=== PATIENT | male | born 1950 | race Caucasian/White ===

== ENCOUNTER → 2016-07-31 | Outpatient (CLI) | payer OTHER ==
[~2016-07-31] VITALS: Ht 175.3 cm; Wt 61.2 kg
[~2016-07-31] MED LIST: FENTANYL PA25 MCG/HR TRANSDERM; LANTUS SUBQ; LIDODERM 5%1 PATC1 TRANSDERM; OMEPRAZOLE20 M2 PO; OXYCODONE HCL 55 MG PO
--- NOTE | ~2016-07-31 | HPC ---
[facility] [address] [place] [address] PAIN MANAGEMENT CONSULTATION Name: CONI LUIS Room #: REG [facility] MNatalie.#: [id number] Admission: 07/31/16 Attend Phys: Ata Anderson DO Discharge: Date of : 50 Report #: [id number] THIS REPORT FOR: //name// CC: Dr. Georgie Anderson DATE OF SERVICE: 07/31/2016 HISTORY OF PRESENT ILLNESS: The patient is a very pleasant 66-year-old gentleman, seen in consultation at the [facility] for assistance with management of pancreatic pain. The patient notes he was in his usual state of good health when physician noted he was a bit jaundiced in April (2015) , subsequent workup revealed pancreatic cancer. He has completed 3 months of chemotherapy. They attempted Whipple surgical procedure, but unfortunately after opening the abdomen they simply aborted the procedure due to spread of disease. States he actually did reasonably well from a pain standpoint until January and then pain started to become more problematic in the mid back radiating to the ribs. Pain seems to be worse throughout the day sitting, gets some relief with pain medications, heat and walking. He describes continuous, throbbing pain, rates anywhere from 7-9 on a 0-10 visual analog scale. Currently, utilizing Duragesic 37 mcg (one 25 mcg patch one 12 mcg patch), oxycodone 5 mg anywhere from 2-6 a day for pain, Lidoderm patches with some efficacy. He is loathe to take more opiates due to cognitive issues. He would like to remain as sharp and focussed as he can. REVIEW OF SYSTEMS: Complete review of systems attached to chart and gone over with the patient. He is , seen in the company of his sister who is supportive. He has a 77-mzwh-wswz smoking history, quit in 2014. He used to drink episodically, though he has had not any alcohol for the past year, had none insulin-dependent diabetes for some time, though following the cancer diagnosis and more aggressive infiltration of tumor in the pancreatitis, he has become insulin-dependent. Has a history of hypertension, on no medications; gastroesophageal reflux for which he takes omeprazole. 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 He is a retired local delivery truck driver. Pain impact score is 49/70. PHYSICAL EXAMINATION: GENERAL: Reveals a 5 feet 9 inches, 150 pounds gentleman. He has lost about 30 pounds in the last 6 months. VITAL SIGNS: Blood pressure is 115/76, pulse 77, respirations are 14, BMI is [address] [address] PAIN MANAGEMENT CONSULTATION Name: CONI LUIS [facility]#: [id number] Admission: 07/31/16 Attend Phys: Ata Anderson DO Discharge: Date of : 50 Report #: [id number] 19.4 kg/meter squared. He does appear somewhat cachectic. NEUROLOGIC: Cranial 2-12 are grossly intact. HEENT: Pupils equal, reactive to light and accommodation. Extraocular muscles are intact. There is no nystagmus or lateral gaze deviation. Thyroid is modestly enlarged. NECK: Cervical range of motion is full. Upper extremity strength is preserved. HEART: Regular rhythmical without murmur. LUNGS: Clear to auscultation. EXTREMITIES: Lower extremity strength is symmetric. Gait is tandem. Lower extremity deep tendon reflexes are symmetric. Straight leg raise is negative. BACK: Inspection of back is unremarkable. ABDOMEN: Shows some diffuse tenderness, though no masses appreciable, normal borborygmi, negative rebound or guarding. DIAGNOSTIC DATA: The patient does have a recent CT of the abdomen, from 06/06/2016. 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 No bowel obstruction is noted. ASSESSMENT: Pancreatic cancer, abdominal pain requiring complex medication management. RECOMMENDATION: Long discussion with the patient today about therapeutic options. I discussed at length celiac plexus block, anatomic challenge, side effects including diarrhea, increased abdominal pain and lower extremity weakness as well as incontinence. The patient understands risks and benefits. He would like to proceed. We will plan on moving forward with outpatient celiac plexus diagnostic block. The patient will require IV placement and hypertension prior due to anticipated hypotension. If this affords good relief 6-8 weeks, we will repeat the block Indefinitely. If it gives him short term relief, we will plan on moving forward with celiac plexus ablation. He will require at least 23 hour observation. The patient was discharged in good and stable condition. We will plan to move forward with diagnostic celiac plexus block at earliest possible date. Thanks for allowing me to participate in the patient's care. I will keep you abreast of his progress. <ELECTRONICALLY SIGNED> By: Ata Anderson DO 08/03/16 0749 [id number] [id number] Ata Anderson DO /nt
[2016-07-31 13:13] VITALS: BP 115/76
== END ==
LOC: PAIN 09:52
DX: R10.12 Left upper quadrant pain (principal); Z87.891 Personal history of nicotine dependence; I10 Essential (primary) hypertension; E10.9 Type 1 diabetes mellitus without complications

== ENCOUNTER → 2016-08-06 | Outpatient (CLI) | payer OTHER ==
[~2016-08-06] VITALS: Ht 172.7 cm; Wt 65.3 kg
--- NOTE | ~2016-08-06 | HPC ---
[facility] [place] [address] [place] [address] PAIN MANAGEMENT CONSULTATION Name: CONI LUIS [facility] [id number] Admission: 08/06/16 Attend Phys: Ata Anderson DO Discharge: Date of : 50 Report #: [id number] THIS REPORT FOR: //name// CC: GUCCI Anderson DATE OF SERVICE: 08/06/2016 The patient is a very pleasant 66-year-old gentleman with pancreatic carcinoma. He has elected to forgo chemotherapy, 3 rounds caused significant nausea and vomiting. He is under palliative management presently. Ongoing abdominal pain, not well treated with current opiate analgesics. He was seen in consultation 07/31/2016. We discussed a celiac plexus block. The patient presents to pain clinic today for diagnostic celiac plexus block. Risks and benefits were discussed including risk of pneumothorax, increased pain, weakness, diarrhea, lower extremity paralysis and mesenteric infarction. The patient understands risks and benefits and wished to proceed. 1. Intravenous access was established in the right forearm by myself with a 20-gauge Angiocath. An IV of 0.9% normal saline infusion was started with the intent of bolusing approximately 500 mL. 2. The patient was taken to the fluoroscopy suite, placed in prone position with appropriate abdominal bolstering. Prep and drape was accomplished. Skin wheal with Xylocaine was raised. A 22-gauge Chiba needle was placed from a left paramedian approach contacting the superior aspect of the L1 vertebral body. The stylet was removed and a saline filled glass syringe was connected. With continuous plunger pressure and biplanar fluoroscopy, the needle was advanced anteriorly. Loss of resistance was obtained with the needle about midpoint on an anterior, posterior view and approximately 5-7 mm anterior to the anterior most portion of the L1 vertebral body on a lateral view. Negative aspiration was accomplished. 1 mL of Omnipaque was injected, which showed spread within the celiac gutter. A 5 mL of 0.5% preservative-free bupivacaine plus 5 mL of 1.5% preservative-free Xylocaine with 1:200,000 epinephrine and 40 mg of triamcinolone was injected. The needle was removed, area was cleansed, Band-Aid was applied. The patient was log rolled onto transfer [place]. He was taken to the recovery room, monitored for an appropriate period of time. IV bolus was completed. IV was discontinued. The patient was discharged in good and stable condition. We will monitor effect of block. If he gets a prolonged relief, i.e., 6-8 weeks, we will consider repeating the injection. If he gets [address] [address] PAIN MANAGEMENT CONSULTATION Name: CONI LUIS Room #: REG CLI Jose Ramon#: [id number] Admission: 08/06/16 Attend Phys: Ata Anderson DO Discharge: Date of : 50 Report #: [id number] good yet transient relief, we will plan on moving forward with celiac plexus ablation. <ELECTRONICALLY SIGNED> By: Ata Anderson DO 08/07/16 0837 0814 1437 Ata Anderson DO /nt
[2016-08-06 07:36] VITALS: BP 125/79
== END | disposition home or self-care (01) ==
LOC: PAIN 07:08
DX: C25.9 Malignant neoplasm of pancreas, unspecified (principal); R10.9 Unspecified abdominal pain; R07.81 Pleurodynia; M54.9 Dorsalgia, unspecified

== ENCOUNTER → 2016-08-14 | Outpatient (CLI) | payer OTHER ==
[~2016-08-14] VITALS: Ht 175.3 cm; Wt 61.7 kg
--- NOTE | ~2016-08-14 | HPC ---
[facility] [place] [address] PAIN MANAGEMENT CONSULTATION Name: JANELLECONI Room #: REG [facility] Shilpa.#: [id number] Admission: 08/14/16 Attend Phys: Ata Anderson DO Discharge: Date of : 50 Report #: [id number] THIS REPORT FOR: //name// CC: GUCCI Anderson HISTORY OF PRESENT ILLNESS: The patient is a very pleasant 66-year-old gentleman initially seen in consultation for acute and chronic abdominal pain secondary to pancreatic cancer. The patient has failed conservative therapy. We did a celiac plexus diagnostic block last week. The patient had excellent relief near 100% for about 3 days, pain began to recur. He presents to pain clinic today for celiac plexus ablation with alcohol and IV sedation. The patient understands risks to include increased pain, paralysis, and uncontrolled diarrhea. He wishes to proceed. PROCEDURE NOTE: After written and informed consent was obtained. I started a 20-gauge Angiocath IV in the right forearm. The patient was hydrated with 300 mL of normal saline. He was taken to the fluoroscopy suite, placed in the prone position. After sterile prep and drape, a skin wheal with Xylocaine was raised and a 22-gauge 6-inch Chiba needle was placed in the left paramedian approach to contact the L1 vertebral body. Under triplanar fluoroscopy, the needle was walked anteriorly to the vertebral body at the T12-L1 junction. Had a positive heme return with needle tip in the aorta. Needle was then generally advanced through the anterior wall of the aorta. Negative aspiration was accomplished. 1 mL of Omnipaque was injected, which had spread in the periaortic area and to the sympathetic gutter. The patient was then given propofol by Dr. Nacho Busch, was performed in monitored anesthesia care. When the patient was unconscious 12 mL of absolute alcohol was then injected. The needle was flushed with 1 mL of lidocaine and removed. The patient was "log rolled" on to the adjacent [facility] and taken to the recovery room. He was monitored for an appropriate period of time. Vital signs remain stable. He reported excellent pain control. In fact he expressed the fact that he was starting to get hungry. He was able to move his toes, knees and hips. Had abdominal wall sensation. Subjective pain was improved. The patient was discharged in good and stable condition after appropriate monitoring and vital sign stabilization. We will see patient even on an as needed basis. <ELECTRONICALLY SIGNED> By: Ata Anderson DO 08/17/16 1118 0918 1142 Ata Anderson DO /nt
[2016-08-14 08:07] VITALS: BP 126/67
== END | disposition home or self-care (01) ==
LOC: PAIN 05:42
DX: C25.9 Malignant neoplasm of pancreas, unspecified (principal); R10.9 Unspecified abdominal pain; G89.29 Other chronic pain

== ENCOUNTER → 2016-09-11 | Outpatient (CLI) | payer OTHER ==
[~2016-09-11] VITALS: Ht 175.3 cm; Wt 59.3 kg
[~2016-09-11] MED LIST changes: +COLACE100 MG PO; +LEVSIN-SL0.125 MG SL; +MILK OF MA2400 MG/10 PO; +VOLTAREN GEL 1100 G2 TOP; +fentanyl TD
--- NOTE | ~2016-09-11 | HPC ---
[facility] [place] [address] PAIN MANAGEMENT CONSULTATION Name: CONI LUIS Room #: REG [facility] MMacrina.#: [id number] Admission: 09/11/16 Attend Phys: Soledad Busch MD Discharge: Date of : 50 Report #: [id number] THIS REPORT FOR: //name// CC: Soledad BUENROSTRO DATE OF SERVICE: 09/11/2016 The patient is a very pleasant 66-year-old gentleman being seen for abdominal pain, history of adenocarcinoma of the pancreas, had a celiac plexus ablation 08/14/2016. [facility] Presents to the pain clinic today with some mid back pain. The patient notes following the celiac plexus ablation, pain has been significantly improved in the abdominal area. Does have some mid back pain spreading around the ribs. On physical exam, it appears to be about the T11 through L2 area, bilateral paravertebral. Pain seems to be exacerbated a little bit with rotation and side bending. There were no discrete trigger points noted at this time, a little tenderness in the muscles. He notes appetite has been waning a bit, weight is down to 59 kilograms, he had been 61 kilograms on 07/31/2016. Notes that stools are a little intermittent between constipation and diarrhea. He is using Colace and milk of magnesia. We talked about trying to increase nutritional support with protein supplement (Ensure, Premier Protein, etc.). Subjective pain score 6/10, again primarily in the mid back. He is pleased to note that the prior abdominal pain from pancreatic cancer has improved and continues to be improved with the status post ablation. Does have residual ongoing pain, is utilizing Duragesic and oxycodone 5 mg anywhere from 3-6 a day. Doing well with this medication. Has been utilizing a Lidoderm patch to the low back at bedtime, taking off in the morning. This is for this primary mid back pain. ASSESSMENT: Myofascial pain component, thoracolumbar paravertebral muscles in a gentleman with a history of adenocarcinoma of the pancreas requiring complex medication management on palliative care. RECOMMENDATIONS: Discussion with the patient, his sister and daughter today, we have elected to trial Voltaren gel topically in the morning when he takes a Lidoderm patch off, he can apply this up to 3 times a day. We also talked about using Levsin sublingual (hyoscyamine) sublingual to help with abdominal gas and spasm. I will be happy to see the patient on an as [place] [address] PAIN MANAGEMENT CONSULTATION Name: CONI LUIS Room #: REG CLJosé Miguel Massey.#: [id number] Admission: 09/11/16 Attend Phys: Soledad Busch MD Discharge: Date of : 50 Report #: [id number] trigger point injections into the thoracolumbar paravertebral muscles if indicated, I can repeat celiac plexus block/ablation if the acute abdominal pancreatic pain recurs. Thank you for allowing me to participate in the patient's care. I will keep you abreast of his progress. <ELECTRONICALLY SIGNED> By: Ata Anderson DO 09/14/16 0856 [id number] 1627 Ata Anderson DO /nt
[2016-09-11 12:39] VITALS: BP 113/80
== END ==
LOC: PAIN 06:59
DX: R10.9 Unspecified abdominal pain (principal); M79.1 Myalgia; Z85.07 Personal history of malignant neoplasm of pancreas